=== PATIENT | female | born 1965 | race Caucasian/White ===

== ENCOUNTER → 2022-01-12 15:42 | Outpatient (BNVA) | payer OTHER, SELFPAY | PROVIDERS: Visit Provider Nurse Practitioner Family | DX: M47.896 Other spondylosis, lumbar region (principal); M54.59 Other low back pain | CPT/HCPCS: 72100 ==

== ENCOUNTER → 2022-11-09 13:04 | Outpatient (BNVA) | payer OTHER, SELFPAY | PROVIDERS: PCP Nurse Practitioner Family; Visit Provider Nurse Practitioner Family | DX: K59.00 Constipation, unspecified (principal) | CPT/HCPCS: 74018 ==

== ENCOUNTER 2022-11-29 06:23 | Day surgery (SDC) | payer OTHER, SELFPAY ==
[2022-11-27 08:45] VITALS: BMI 20.7
[2022-11-29 06:43] VITALS: BP 117/79; PULSE 64; RESP 18; TEMP 36.2; O2SAT 97
[2022-11-29] MEDS: sodium chloride 0.9% 1,000 ML 30 ML IV (06:52)
--- NOTE | 2022-11-29 06:56 | W.PM.OPSUD ---
Surgery/Procedure H&P Update DATE OF PROCEDURE: November 29, 2022 DATE H&P PERFORMED: 11/14/22 H&P UPDATE INFORMATION: I have reviewed H&P completed within last 30 days, I have examined patient prior to procedure and No changes to prior documentation PLANNED PROCEDURE: Operation Date: 11/29/22 08:00 Proposed Procedures p 27919 Colon 37101 EGD 59.09,Z80.0, K21.9(Not Applicable) - DO mckay Duran Colonoscopy(Not Applicable) - Newton Lynn DO
--- NOTE | 2022-11-29 08:08 | ANES.PREANE2 ---
Pre-Anesthetic Assessment Height/Weight: Height 1.65 m Weight 56.699 kg Temp Pulse Resp BP Pulse Ox O2 Del Method 97.1 F L 64 18 117/79 97 11/29/22 06:43 11/29/22 06:43 11/29/22 06:43 11/29/22 06:43 11/29/22 06:43 11/29/22 06:43 Preop Diagnosis: Gerd, hx malignant neoplasm Operation Date: 11/29/22 08:00 Proposed Procedures p 80612 Colon 64874 EGD 59.09,Z80.0, K21.9(Not Applicable) - DO mckay Duran Colonoscopy(Not Applicable) - Newton Lynn DO Familial anesthetic complications: None Was Beta Marya taken within 24 hours: N/A Was Clonidine taken within 24 hours: N/A Last intake: Intake Last Liquid Date 11/28/22 Last Liquid Time 22:00 Last Solid Date 11/27/22 Last Solid Time 19:00 Social No alcohol and No tobacco Exam alert, oriented x 3 and clear to auscultation bilaterally Airway Submandibular: within normal limits Cervical ROM: within normal limits Mallampati: Class II Dentition: full History/ROS No significant history except as noted Pulmonary None reported CV/HEM None reported None reported Hepatic None reported GI Gastroesophageal Reflux Disease Metabolic None reported Musc/skel None reported Neuropsych None reported Anesthetic Plan ASA status: 2 Anesthesia: Anesthesia Evaluation and MAC Risk of > 500 ml blood loss (7ml/kg in children): No Medications/Allergies Home Medications Medication Instructions Recorded Confirmed Last Taken Type cyanocobalamin (vitamin B-12) 1,000 mcg SUBCUT Q14D 11/14/22 11/27/22 11/21/22 History 1,000 mcg/mL injection solution potassium chloride 10 mEq 10 meq PO DAILY 11/14/22 11/27/22 11/27/22 History capsule,extended release topiramate 50 mg tablet 50 mg PO DAILY 11/14/22 11/27/22 11/28/22 History linaclotide 145 mcg capsule 145 mcg PO DAILY 11/27/22 11/27/22 11/28/22 History (Linzess) pantoprazole 40 mg tablet,delayed 40 mg PO DAILY 11/27/22 11/27/22 11/27/22 History release (Protonix) Allergies Allergy/AdvReac Type Severity Reaction Status Date / Time latex Allergy ALGY-Anaphy Verified 11/27/22 08:41 laxis Current Medications Generic Name Dose Route Start Last Admin Trade Name Freq PRN Reason Stop Dose Admin Sodium Chloride 1,000 mls @ 30 mls/hr 11/29/22 06:30 11/29/22 06:52 Sodium Chloride 0.9% IV 11/30/22 06:29 30 mls/hr .Q24H GAVINO Administration PFSH Anesthesia Medical History (Updated 11/14/22 @ 11:00 by Newton Lynn DO) Chronic constipation Family history of colon cancer GERD (gastroesophageal reflux disease) Surgical History Hx of section x2 Hx of cholecystectomy Hx of colonoscopy Hx of esophagogastroduodenoscopy Hx of hernia repair x3 -umbilical [facility] Family History Grandfather Cancer colon cancer Family/Other Cancer brain cancer Social History Smoking and tobacco status: never smoked Alcohol intake: current Alcohol intake frequency: holidays/special occasions only Data Anesthesia Cardiac Studies: No Data to Display
[2022-11-29 09:14] VITALS: BP 98/67; PULSE 72; RESP 16; TEMP 36.1; O2SAT 98
[2022-11-29 09:19] VITALS: BP 107/70; PULSE 66; RESP 18; O2SAT 96
[2022-11-29 09:29] VITALS: BP 130/80; PULSE 62; RESP 18; O2SAT 97
--- NOTE | 2022-11-29 16:40 | ANE.PACU2 ---
Inpatient post-anesthesia follow up: Airway intact: Yes Vital signs: Temperature 97.0 F Pulse Rate 62 Respiratory Rate 18 Blood Pressure 130/80 Pulse Oximetry 97 Oxygen Delivery Me thod Room Air Oxygen Flow Rate Fraction of Inspir ed Oxygen Hydration adequate: Yes Nausea and vomiting: No Pain level: 2 Mental status: Baseline
== END 2022-11-29 09:52 | disposition home or self-care (01) ==
PROVIDERS: PCP Nurse Practitioner Family; Visit Provider Surgery
PROC: 0DJ08ZZ Inspection of Upper Intestinal Tract, Via Natural or Artificial Opening Endoscopic (ICD-10-PCS; CPT 43235; principal; 2022-11-29 08:00)
PROC: 0DJD8ZZ Inspection of Lower Intestinal Tract, Via Natural or Artificial Opening Endoscopic (ICD-10-PCS; CPT 45378; 2022-11-29 08:00)
DX: K59.09 Other constipation (principal); Z80.0 Family history of malignant neoplasm of digestive organs; K21.9 Gastro-esophageal reflux disease without esophagitis; K64.8 Other hemorrhoids
CPT/HCPCS: 43239; 45378; 88305; J2704; J7030

== ENCOUNTER 2022-12-11 18:46 | Inpatient (IN) | payer OTHER, SELFPAY ==
[2022-12-08 10:43] VITALS: BMI 20.2
[2022-12-11] VITALS (35 sets, daily range): BP systolic 75–135; BP diastolic 35–80; PULSE 58–597; RESP 15–20; TEMP 36.3–36.8; O2SAT 94–100
--- NOTE | 2022-12-11 08:48 | W.PM.OPSUD ---
Surgery/Procedure H&P Update DATE OF PROCEDURE: December 11, 2022 DATE H&P PERFORMED: 11/14/22 H&P UPDATE INFORMATION: I have reviewed H&P completed within last 30 days, I have examined patient prior to procedure and Changes to prior documentation as noted here (Dx: Recurrent incisional hernia) PREOP DIAGNOSIS: Recurrent incisional hernia PLANNED PROCEDURE: Operation Date: 12/11/22 10:00 Proposed Procedures p lap recurrent incisional hernia repair w mesh 22179, K43.2(Not Applicable) - Newton Lynn DO
[2022-12-11] MEDS: sodium chloride 0.9% 1,000 ML 30 ML IV (08:51)
[2022-12-11 09:08] LABS: OR HCG Qualitative Urine Negative (Negative)
--- NOTE | 2022-12-11 09:10 | P.ANESASSM_ITS ---
Pre-Anesthetic Assessment Height/Weight: Height 1.65 m Weight 55.338 kg Temp Pulse Resp BP Pulse Ox O2 Del Method 97.3 F L 60 18 131/80 100 12/11/22 08:40 12/11/22 08:40 12/11/22 08:40 12/11/22 08:40 12/11/22 08:40 12/11/22 08:44 Preop Diagnosis: Recurrent incisional hernia Operation Date: 12/11/22 10:00 Proposed Procedures p lap recurrent incisional hernia repair w mesh 72813, K43.2(Not Applicable) - Newton Lynn DO Familial anesthetic complications: None Was Beta Marya taken within 24 hours: N/A Was Clonidine taken within 24 hours: N/A Last intake: Intake Last Liquid Date 12/07/22 Last Liquid Time 22:00 Last Solid Date 12/10/22 Last Solid Time 19:00 Social No alcohol and No tobacco Exam alert, oriented x 3, clear to auscultation bilaterally and regular rate & rhythm Airway Mallampati: Class I Dentition: full GI Gastroesophageal Reflux Disease Anesthetic Plan ASA status: 2 Anesthesia: General Risk of > 500 ml blood loss (7ml/kg in children): No Medications/Allergies Home Medications Medication Instructions Recorded Confirmed Last Taken Type cyanocobalamin (vitamin B-12) 1,000 mcg SUBCUT Q14D 11/14/22 12/08/22 11/21/22 History 1,000 mcg/mL injection solution potassium chloride 10 mEq 10 meq PO DAILY 11/14/22 12/08/22 12/09/22 History capsule,extended release topiramate 50 mg tablet 50 mg PO DAILY 11/14/22 12/08/22 12/10/22 History linaclotide 145 mcg capsule 145 mcg PO DAILY 11/27/22 12/08/22 12/09/22 History (Linzess) cetirizine 10 mg capsule (Zyrtec) 10 mg PO DAILY PRN Allergy Symptoms 12/11/22 12/11/22 12/09/22 History omeprazole magnesium 20 mg 20 mg PO DAILY 12/11/22 12/11/22 12/09/22 History tablet,delayed release (Prilosec OTC) Allergies Allergy/AdvReac Type Severity Reaction Status Date / Time latex Allergy ALGY-Anaphy Verified 12/08/22 10:40 laxis Current Medications Generic Name Dose Route Start Last Admin Trade Name Freq PRN Reason Stop Dose Admin Sodium Chloride 1,000 mls @ 30 mls/hr 12/11/22 08:45 12/11/22 08:51 Sodium Chloride 0.9% IV 12/12/22 08:44 30 mls/hr .Q24H GAVINO Administration PFSH Anesthesia Medical History (Updated 11/14/22 @ 11:00 by Newton Lynn DO) Chronic constipation Family history of colon cancer GERD (gastroesophageal reflux disease) Surgical History Hx of section x2 Hx of cholecystectomy Hx of colonoscopy Hx of esophagogastroduodenoscopy Hx of hernia repair x3 -umbilical [facility] Family History Grandfather Cancer colon cancer Family/Other Cancer brain cancer Social History Smoking and tobacco status: never smoked Alcohol intake: current Alcohol intake frequency: holidays/special occasions only Data Anesthesia Cardiac Studies: No Data to Display
[2022-12-11] MEDS: ceFAZolin 2,000 MG in sodium chloride 0.9% (plus) 50 ML 100 MG IV (10:02)
[2022-12-11] MEDS: lidocaine-epi 2% 20 mL INJ 8 ML INJECTION (10:45)
--- NOTE | 2022-12-11 11:02 | PM.OP ---
Operative Report Date of procedure: December 11, 2022 Pre-op diagnosis: Preop Diagnosis Recurrent incisional hernia Post-op diagnosis: same Procedure done: Laparoscopic repair of recurrent incisional hernia with mesh Implants: 11 cm round Ventralight mesh Specimens removed/disposition: Hernia sac Surgeon: Dr. Newton Lynn DO Anesthesia: General Estimated blood loss (mL): 5 Complications: None apparent Brief History: This is a very pleasant 57-year-old female who has a history of 3 hernia repairs with mesh in the past. She developed another hernia at the superior aspect of her previous repairs. Laparoscopic repair with mesh was indicated. The risks and benefits were explained and documented. Procedure: Patient was wheeled into the operative room and placed on the OR table in a supine position. Abdomen was inspected prepped and draped in usual sterile fashion. Time-out was performed and all present were in agreement. A 15 blade scalp was used to make a 5 millimeter incision left upper quadrant. A Veress needle was placed into the incision and intra-abdominal insufflation was brought to 15 millimeters of mercury. A 12 millimeter trocar was placed into the left lower quadrant. There was significant omental adhesions to the previous meshes on the anterior abdominal wall. These were taken down bluntly and with the Enseal. A small, 1 cm hernia was identified at the superior aspect of the previous mesh repair. The energy but device was then used to cut out the hernia sac. An 11 cm ventralight mesh was placed into the abdomen and brought up through the umbilicus using an the Sukh-Chandrika. The mesh was then tacked in place in a double crown fashion. The skeleton of the mesh was removed via the left lower quadrant. The hernia sac was then removed from the abdomen via the left lower quadrant. The left lower quadrant port site was closed with an 0 Vicryl suture in a Sukh-Chadnrika in a [id number] fashion. Incisions were closed with 4-0 Monocryl in a subcuticular interrupted fashion. Skin glue was applied. Patient tolerated the procedure well.
[2022-12-11] MEDS: HYDROcodone-acetaminophen 10-325 mg Tablet 1 TAB PO (11:50)
--- NOTE | 2022-12-11 13:05 | PC.NURSE ---
1300- attempted to ambulate to bathroom . pt complains of dizziness . pupils dilated bilat. pt assisted back to bed. cont. to complain of dizziness. legs up . pt cont to complain of generalized abdomen pain. abdomen soft . incisions dry/intact.
--- NOTE | 2022-12-11 13:39 | PC.NURSE ---
attempted to sit on side of bed. pt cont to c/o dizziness. pt laid back down . report to lico toth
[2022-12-11] MEDS: albumin 12.5 GM/250 ML VIAL IV (14:10)
[2022-12-11] MEDS: sodium chloride 0.9% 500 ML 999 ML IV (14:13)
--- NOTE | 2022-12-11 14:29 | PC.NURSE ---
report received from Lucero Rahman. Patient BP 78/56 after sitting up in bed. Informed Dr. Mills and she came to see patient. Order for 250 of albumin and 1000fluid bolus orderd.
--- NOTE | 2022-12-11 15:21 | XR_ITS ---
WS: [id number] EXAMINATION: XR chest 1V portable [id number] REASON FOR EXAM: post op COMPARISON: None available. ORDER DATE: 12/11/2022 3:25 PM TECHNIQUE: A single, portable frontal chest x-ray was obtained. X-RAY FINDINGS: There is minimal bibasal atelectasis with diaphragm elevation.. There is a 4 mm density in the centra l right upper lobe and 3 mm density in the same location on the left probably small granulomas there are no previous studies available for comparison. Pleural spaces are clear. No pleural effusions or p neumothorax. Cardiomediastinal silhouette is normal. No evidence for pulmonary edema. Soft tissue and osseous structures are unremarkable. No tubes or lines are present. XR/XR chest 1V portable [id number] IMPRESSION: Minimal bibasal atelectasis greater on the left. Focal small nodular opacity in each upper lobe most likely benign but no previo us studies available for comparison. Previous studies are available at another facility would be beneficial to obtain these for comparison otherwise a follow- up is indicated especially if the patient is at higher risk for pulmonary nodul es.
--- NOTE | 2022-12-11 15:25 | SUR.PHASEII ---
informed of patient status. Low bp and continured pain. Orders of Chest xray stat obtained.
--- NOTE | 2022-12-11 16:24 | PC.NURSE ---
Attempt to stand Dr. Lynn at bedside requesting patient sit on side of bed and stand beside bed, while obtaining orthostatic vitals. HR stayed 60-70s. BP decreased upon standing. Patient continues to complain of dizziness. Patient heavily symptomatic, unable to speak while standing, pale in color, pupils dilating, and patient swaying back and forth. Patient transferred back to bed, placed in reverse trendelenburg, and Dr. Lynn explained to patient and family that she will be staying overnight for observation. Dr. Munguia at bedside now, speaking with patient and family. Patient able to take sips, denies anything to eat. Denies any nausea/vomiting. Awaiting further orders.
--- NOTE | 2022-12-11 16:30 | ANE.PACU2 ---
Inpatient post-anesthesia follow up: Airway intact: Yes Vital signs: Temperature 98.3 F Pulse Rate 78 Respiratory Rate 16 Blood Pressure 94/55 Pulse Oximetry 93 Oxygen Delivery Me thod Room Air Oxygen Flow Rate 6 Fraction of Inspir ed Oxygen Hydration adequate: Yes Nausea and vomiting: No Pain level: 4 Mental status: Baseline Additional Comments: Orthostatic hypotension despite fluid bolus, admitted to floor
--- NOTE | 2022-12-11 17:42 | PM.HP ---
Providers/Chief Complaint Primary Care Provider: Radha Verdin Chief Complaint: K43.2 History of Present Illness Pleasant 57-year-old lady who underwent elective hernia repair with minimal blood loss, without preoperative issues apart from did not muscle ache/soreness in her arms/shoulders after trimming some bushes outside a day ago, could not discharge home from PACU due to severe orthostatic hypotension/symptoms, blood pressure soft laying down, currently 90/56, but states went down as low as 60/30 transiently while she was upright. She is feeling somewhat tired. She otherwise denies any changes in her medications recently. She has not taken her topiramate since Sunday. Denies any other added or removed medications. Denies any malaise, fever, chills, headache, chest pain pressure, nausea vomiting or diarrhea. Has noticed she has not urinated since this morning. She has received a bolus of fluid in PACU. She does not feel that she necessarily needs to go right now. noticed that she had somewhat slow time coming around from anesthesia. Started mildly slurred/ drugged , but this has been resolving. She otherwise denies any new focal deficit. Review of Systems Const: Denies: fever(s), chills, body aches or malaise Eyes: Denies: change in vision ENMT: Denies: throat pain, oral sores or ear or mastoid pain Card: Denies: chest pain, edema, pre-syncope or dyspnea on exertion Resp: Denies: dyspnea, productive cough, change in phlegm color or hemoptysis GI: Reports: abdominal pain; Denies: nausea, vomiting, diarrhea, constipation, hematochezia or melena : Denies: flank pain, urinary frequency or hematuria Musc: Denies: back pain, joint swelling or joint redness Skin/Breast: Denies: rash or new lesions Neuro: Denies: headache(s), numbness in extremities, weakness in extremities, dizziness, confusion or seizure-like activity Medications/Allergies Home Medications Medication Instructions Recorded Confirmed Last Taken Type cyanocobalamin (vitamin B-12) 1,000 mcg SUBCUT Q14D 11/14/22 12/08/22 11/21/22 History 1,000 mcg/mL injection solution potassium chloride 10 mEq 10 meq PO DAILY 11/14/22 12/08/22 12/09/22 History capsule,extended release topiramate 50 mg tablet 50 mg PO DAILY 11/14/22 12/08/22 12/10/22 History linaclotide 145 mcg capsule 145 mcg PO DAILY 11/27/22 12/08/22 12/09/22 History (Linzess) cetirizine 10 mg capsule (Zyrtec) 10 mg PO DAILY PRN Allergy Symptoms 12/11/22 12/11/22 12/09/22 History docusate sodium 100 mg capsule 100 mg PO BID #14 caps 12/11/22 Unknown Rx (DOK) hydrocodone 10 mg-acetaminophen 1 tab PO Q6H PRN pain #20 tabs 12/11/22 Unknown Rx 325 mg tablet omeprazole magnesium 20 mg 20 mg PO DAILY 12/11/22 12/11/22 12/09/22 History tablet,delayed release (Prilosec OTC) Allergies Allergy/AdvReac Type Severity Reaction Status Date / Time latex Allergy ALGY-Anaphy Verified 12/08/22 10:40 laxis PFSH Acute PFSH: Medical History Chronic constipation Family history of colon cancer GERD (gastroesophageal reflux disease) Surgical History Hx of section x2 Hx of cholecystectomy Hx of colonoscopy Hx of esophagogastroduodenoscopy Hx of hernia repair x3 -umbilical [facility] Family History Grandfather Cancer colon cancer Family/Other Cancer brain cancer Social History Smoking and tobacco status: never smoked Alcohol intake: current Alcohol intake frequency: holidays/special occasions only Alcohol use comment: Up to 1 drink nightly Marital status: Current occupational status: employed Current occupation: Banking Vitals/I&O/Wt Last Vital Signs Temp 97.8 F 12/11/22 15:00 Pulse 62 12/11/22 17:30 Resp 17 12/11/22 17:30 BP 98/57 12/11/22 17:30 Pulse Ox 97 12/11/22 17:30 O2 Del Method 12/11/22 17:30 O2 Flow Rate 6 12/11/22 11:25 12/11/22 12/11/22 12/11/22 06:59 14:59 22:59 Intake Total 2059 750 / 2810 Output Total Balance 2054 750 / 2805 Physical Exam Narrative: Accompanied by her . Const: COMMON NORMALS: patient oriented x3 and alert GENERAL APPEARANCE: cooperative ORIENTATION/CONSCIOUSNESS: Yes awake HENMT: COMMON NORMALS: oropharynx normal Neck/C-Spine: COMMON NORMALS: no JVD Resp: COMMON NORMALS: normal respiratory effort and clear to auscultation bilaterally AUSCULTATION: clear to auscultation bilaterally Cardio: COMMON NORMALS: no JVD, regular rhythm, S1 normal heart sound present, S2 normal heart sound present and No murmurs present (Cardio) RHYTHM: regular rhythm HEART SOUNDS: S1 normal heart sound present and S2 normal heart sound present GI: PALPATION: Yes Soft to palpation OTHER: Adhesive over trocar wounds, no bleeding or oozing. Extremity: COMMON NORMALS: no joint enlargement and no pedal edema Neuro: COMMON NORMALS: patient oriented x3 and moves all extremities SENSORIUM/ORIENTATION: Yes alert Skin: COMMON NORMALS: no rashes or lesions noted GENERAL SKIN EXAM: no rashes or lesions noted A&P Assessment and plan (1) Hypotension: Soft blood pressure laying down, severe or static hypotension/symptoms with getting upright. May be prolonged recovery from anesthesia. Otherwise denies medication changes apart from did not take topiramate since Sunday. Received a fluid challenge bolus in PACU. Bedrest currently, bedpan, monitor blood pressure. It appears to be gradually improving and she is seemingly gradually more awake following anesthesia. No focal abnormality noted. Blood pressure did come down transiently to as low as 60/30 while upright. Denies chest pain or pressure or other concerning symptoms. States has not urinated since the morning. We will request bladder scan. With severity of hypotension, currently unable to return home, at risk of endorgan injury, possibly life-threatening event. Telemetry monitoring. Will obtain EKG, CBC, CMP, TSH. Had only minimal blood loss. Additionally had some soreness of her arms recent after working outside [email or web address]. Check CK. Check Topamax level. Discussed with her to also let us know in case there is any change in her symptoms. In case lack of improvement or further worsening, consider additional work-up. Plan Status post hernia repair: Managed by surgery. Discussed with surgery. Surgery documentation reviewed. Original plan was to return home after elective procedure. Constipation GERD She and report recently had an unremarkable EGD and colonoscopy. Attestations Medical Necessity Statement*: Further hospitalization for additional assessment of hypotension, severe orthostatic symptoms. Diagnoses Hypotension I95.9
[2022-12-11] MEDS: HYDROcodone-acetaminophen 5-325 mg Tablet 1 TAB PO ×2 (17:47→21:41)
--- NOTE | 2022-12-11 18:13 | SUR.PHASEII ---
1642-received report from VINEET Holloway. Holding patient for room assignment.
[2022-12-11] MEDS: D5-NS 0.45% + KCL 20 mEq 20 MEQ/1,000 ML BAG 75 MEQ IV (19:44)
[2022-12-11] MEDS: docusate sodium 100 mg Capsule PO (19:45)
[2022-12-11] MEDS: heparin 5,000 unit/mL INJ 1 mL 5000 UNIT SUBCUT (19:45)
[2022-12-11] MEDS: ketorolac 30 mg/mL INJ IVP (19:50)
--- NOTE | 2022-12-11 20:30 | PC.NURSE ---
BP BP has been in 90's systolic since to room from OR. At present was 100/63. Was given IV Toradol for pain and explained to pt will give her some Morphine for cont c/o pain if BP continues to improve. Was given some IV Toradol
[2022-12-11 21:15] LABS: Basophils % 0.1 %; Hematocrit 26.8 % (37.0-47.0); Hemoglobin 8.7 g/dL (11.5-15.3); Lymphocytes # 0.8 10^3/uL (0.8-4.8); Lymphocytes % 7.4 %; Mean Corpuscular HGB Conc 32.5 g/dL (30.0-36.0); Mean Corpuscular Hemoglobin 29.1 pg (28.0-34.0); Mean Corpuscular Volume 89.6 fl (81-99); Mean Platelet Volume 9.4 fL (7.4-10.4); Monocytes # 0.3 10^3/uL (0.2-0.9); Monocytes % 2.7 %; Neutrophils # 9.26 10^3/uL (1.8-7.7); Neutrophils % 89.4 %; Nucleated Red Blood Cells % 0 %; Platelet Count 225 10^3/cmm (130-400); Red Blood Count 2.99 10^6/uL (4.1-5.3); Red Cell Distribution Width 15.8 % (12.1-15.1); White Blood Count 10.4 10^3/uL (4.0-10.0)
[2022-12-11 21:46] LABS: Alanine Aminotransferase 24 U/L (0-33); Albumin Level 3.3 g/dL (3.5-5.2); Alkaline Phosphatase 36 U/L (35-105); Anion Gap 11.9 (5-19); Aspartate Amino Transferase 33 U/L (0-32); Blood Urea Nitrogen 16 mg/dL (6-20); Calcium 7.7 mg/dL (8.5-10.5); Carbon Dioxide 21 mmol/L (22-29); Chloride 108 mmol/L (98-107); Creatine Phosphokinase 63 U/L (26-192); Globulin 1.2 g/dL (1.3-4.6); Glomerular Filtration Rate 126.3 mL/min (90-130); Glucose 140 mg/dL (65-115); Osmolality Calculated 287 mOsm/kg (285-295); Potassium 3.9 mmol/L (3.5-5.1); Sodium 137 mmol/L (136-145); Thyroid Stimulating Hormone 1.24 uIU/mL (0.27-4.20); Total Bilirubin 0.5 mg/dL (0.15-1.2); Total Protein 4.5 g/dL (6.6-8.7)
--- NOTE | 2022-12-11 23:39 | ECG_ITS ---
[facility] Test Date: 2022-12-11 Pat Name: Jania Montenegro Department: Room: 253 Gender: Female Advertising Account Representative: : 1965 Requested By: Stone Hernandez Order Number: [id number] Phyllis MD: David Pagan M.D. Measurements Intervals [place] Rate: 70 P: 41 RI: 139 QRS: 45 QRSD: 92 T: 35 QT: 389 QTc: 420 Interpretive Statements SINUS RHYTHM NONSPECIFIC T-WAVE ABNORMALITY No previous ECG available for comparison Electronically Signed On 12-11-2022 23:53:51 CDT by David Pagan M.D. [id number]
[2022-12-12] VITALS (9 sets, daily range): BP systolic 87–104; BP diastolic 51–69; PULSE 73–102; RESP 16–18; TEMP 36.3–37.3; O2SAT 91–97
--- NOTE | 2022-12-12 00:32 | PC.NURSE ---
PT CARE Pt care now being assumed by Vonnie MANLEY
[2022-12-12] MEDS: D5-NS 0.45% + KCL 20 mEq 20 MEQ/1,000 ML BAG 75 MEQ IV ×2 (06:02→21:38)
[2022-12-12] MEDS: HYDROcodone-acetaminophen 5-325 mg Tablet 1 TAB PO ×3 (06:04→18:46)
[2022-12-12] MEDS: ketorolac 30 mg/mL INJ IVP ×2 (06:05→13:09)
--- NOTE | 2022-12-12 08:24 | USCV_ITS ---
Jania Montenegro Age: 57 Gender: F : 1965 Exam Date: 12/12/2022 09:51 Ordering Phys: Stone Hernandez MD Technologist: Exam Location: [facility] – [place], [place] Indication: post surg weakness BP: 104 / 69 HR: 73 Rhythm: Sinus Technical Quality: Adequate MEASUREMENTS (Male / Female) Normal Values 2D ECHO LV Diastolic Diameter PLAX 4.5 cm 4.2 - 5.9 / 3.9 - 5.3 cm LV Systolic Diameter PLAX 3.7 cm IVS Diastolic Thickness 1.0 cm 0.6 - 1.0 / 0.6 - 0.9 cm IVS Systolic Thickness 1.5 cm LVPW Diastolic Thickness 1.2 cm 0.6 - 1.0 / 0.6 - 0.9 cm LVPW Systolic Thickness 1.1 cm LVOT Diameter 2.1 cm LV Ejection Fraction 2D Teich 10.8 % LV Ejection Fraction MOD 2C 78.7 % LV Ejection Fraction 2C AL 79.5 % LA Diameter 3.1 cm Aorta at Sinotubular Diameter 2.9 cm M-MODE Aortic Annulus Diameter 3.6 cm LA Ao Ratio MM 0.9 MV E Point Septal Separation 0.5 cm DOPPLER AV Peak Velocity 120.0 cm/s LVOT Peak Velocity 118.0 cm/s AV Area Cont Eq vti 3.2 cm squared AV Area Cont Eq pk 3.3 cm squared MV Area PHT 3.7 cm squared Mitral E to A Ratio 1.0 MV E' Velocity 33.0 cm/s Mitral E to MV E' Ratio 5.2 Mitral E to LV E' Lateral Ratio 6.0 Mitral E to LV E' Septal Ratio 4.7 TR Peak Velocity 189.7 cm/s TR Peak Gradient 14.4 mmHg TV Peak E Velocity 69.0 cm/s Right Atrial Pressure 3.0 mmHg Pulmonary Artery Systolic Pressu 17.4 mmHg RV Acceleration Time 0.1 s FINDINGS Left Ventricle Left ventricle is normal in size. LV systolic function is normal with EF of 60 to 65%. No regional wall motion abnormalities are seen. Diastolic function is normal Right Ventricle Normal in size and function Right Atrium Normal in size Left Atrium Normal in size Mitral Valve Structurally normal mitral valve. No significant stenosis or regurgitation is seen. Aortic Valve Structurally normal aortic valve. No significant stenosis or regurgitation. Tricuspid Valve Mild tricuspid regurgitation. Pulmonary artery systolic pressure is normal. Pulmonic Valve Not well visualized.Mild pulmonic regurgitation. Pericardium Normal Aorta Normal in size IVC Appears to be normal CONCLUSIONS LV systolic function is normal with EF of 60 to 65%. Diastolic function is normal. Mild tricuspid regurgitation Mild pulmonic regurgitation. No comparison studies are available. Alejandro Bernardo MD (Electronically Signed) Final Date: 13 December 2022 09:05 S
[2022-12-12 09:31] LABS: Anion Gap 11.7 (5-19); Blood Urea Nitrogen 12 mg/dL (6-20); Carbon Dioxide 24 mmol/L (22-29); Chloride 110 mmol/L (98-107); Glomerular Filtration Rate 102.3 mL/min (90-130); Glucose 97 mg/dL (65-115); Osmolality Calculated 294 mOsm/kg (285-295); Potassium 3.7 mmol/L (3.5-5.1); Sodium 142 mmol/L (136-145)
[2022-12-12] MEDS: docusate sodium 100 mg Capsule PO ×2 (09:38→18:47)
[2022-12-12] MEDS: pantoprazole DR 40 mg Tablet PO (09:38)
[2022-12-12] MEDS: heparin 5,000 unit/mL INJ 1 mL 5000 UNIT SUBCUT ×2 (09:39→21:39)
[2022-12-12 09:40] LABS: Cortisol Random 0.87 ug/dL (2.47-19.5)
--- NOTE | 2022-12-12 10:11 | PC.CHAP ---
Pastoral Care Encounter/Spiritual Assessment Type of Contact [] Declined corrugated fastener driver visit [] Patient/Family/Request visit [] Outpatient visit [] Follow-up visit [] Physician referral [] Code/Alert [x] Routine visit [] Staff referral [] Actively dying [] Patient sleeping [] Family support [] [] Out of room [] Palliative care [] [] Receiving care in room [] Pre-surgical visit [] Trauma [] Long length of stay [] ICU visit [] Other: Relational/Emotional Strength [x] Patient feels connected with others/family/visitors/staff [] Distress [] Loneliness/isolation [] Abandonment Spirituality of Patient [x] Person of Mandi [] Attends Tenriism of their Mandi [x] Believes in Prayer [] Reads Bible or Temple materials [] There are Spiritual issues to be addressed Lubricating Machine Tender Interventions [x] Prayer [] Active listening [] Non-anxious presence [x] Spiritual/emotional support [] Crisis/trauma care [] Spiritual counseling [] Bereavement support [] Provided bereavement packet [] Provided Bible/devotional materials [] Provided toy/stuffed animal, coloring book to patient or family member [] Provided Communion [] Anointing/[place] [] Salvation [x] Completed spiritual assessment [] Other: Impact on Illness or Injury [] Angry [] Fearful [] Anxious [] Often cries [] Exhaustion [] Unable to work [] Unable to attend nondenominational [] Unable to walk/stand [] Unable to read [] Unable to drive [] Unable to eat/drink [] Unable to sleep [] Unable to be with family [] Patient intubated [] Other: Summary Time spent with patient 10 min
[2022-12-12 10:18] LABS: Basophils % 0.2 %; Eosinophils % 0.2 %; Hematocrit 24.6 % (37.0-47.0); Hemoglobin 7.8 g/dL (11.5-15.3); Lymphocytes # 2.3 10^3/uL (0.8-4.8); Lymphocytes % 24.1 %; Mean Corpuscular HGB Conc 31.7 g/dL (30.0-36.0); Mean Corpuscular Hemoglobin 28.7 pg (28.0-34.0); Mean Corpuscular Volume 90.4 fl (81-99); Mean Platelet Volume 10.4 fL (7.4-10.4); Monocytes # 0.6 10^3/uL (0.2-0.9); Monocytes % 6.1 %; Neutrophils # 6.55 10^3/uL (1.8-7.7); Neutrophils % 69.1 %; Nucleated Red Blood Cells % 0 %; Platelet Count 234 10^3/cmm (130-400); Red Blood Count 2.72 10^6/uL (4.1-5.3); White Blood Count 9.5 10^3/uL (4.0-10.0)
[2022-12-12 11:39] LABS: Ferritin 83 ng/mL (15-150); Iron 61 ug/dL (37-145); Percent Saturation 30.8 % (20-50); Total Iron Binding Capacity 198 mcg/dl; Unsaturated Iron Binding 137 ug/dL (112-347)
[2022-12-12] MEDS: hydrocortisone 100 mg/2 mL SDV IVP ×2 (12:53→18:46)
[2022-12-12 13:48] LABS: Add Urine Microscopic? NO; Charge for UA Resulting for Rev
[2022-12-12 13:53] LABS: Bilirubin Urine Neg (Negative); Blood Urine Neg (Negative); Glucose Urine UA Norm (Normal); Ketones Urine Negative (Negative); Leukocyte Esterase Urine Negative (Negative); Nitrate Urine Negative (Negative); Protein Urine Neg (Negative); Specific Gravity, Urine 1.025 (1.005-1.030); Urine Appearance Clear (CLEAR); Urine Color Yellow (Yellow); Urobilinogen Urine Norm (Negative); pH Urine 5 (5-7)
--- NOTE | 2022-12-12 13:54 | PM.PN ---
Subjective Subjective: She is feeling about the same this morning. Tired. Mild headache. Mild sore throat which she attributes possibly to intubation. No cough, shortness of breath, chest pain. Abdomen is sore. No vomiting or diarrhea. Has not urinated much since yesterday. Vitals/I&O/Wt Last Vital Signs Temp 98.3 F 12/12/22 11:18 Pulse 78 12/12/22 11:18 Resp 16 12/12/22 11:18 BP 94/55 12/12/22 11:18 Pulse Ox 93 12/12/22 11:18 O2 Del Method 12/12/22 11:18 O2 Flow Rate 6 12/11/22 11:25 12/11/22 12/12/22 12/12/22 22:59 06:59 14:59 Intake Total 850 / 2910 1012.5 / 3922.5 120 / 120 Balance 850 / 2905 1012.5 / 3917.5 120 / 120 Weight last 48 hrs Weight 57.969 kg Physical Exam Narrative: Awake, alert, keenly responsive. Does appear somewhat tired. Const: COMMON NORMALS: patient oriented x3 and alert GENERAL APPEARANCE: cooperative ORIENTATION/CONSCIOUSNESS: Yes awake HENMT: COMMON NORMALS: oropharynx normal Neck/C-Spine: COMMON NORMALS: no JVD Resp: COMMON NORMALS: normal respiratory effort and clear to auscultation bilaterally AUSCULTATION: clear to auscultation bilaterally Cardio: COMMON NORMALS: no JVD, regular rhythm, S1 normal heart sound present, S2 normal heart sound present and No murmurs present (Cardio) RHYTHM: regular rhythm HEART SOUNDS: S1 normal heart sound present and S2 normal heart sound present GI: COMMON NORMALS: Normal to inspection, nondistended, normoactive bowel sounds present, Soft to palpation and non-tender PALPATION: Yes Soft to palpation OTHER: Adhesive over trocar wounds, no bleeding or oozing. Extremity: COMMON NORMALS: no joint enlargement and no pedal edema Neuro: COMMON NORMALS: patient oriented x3 and moves all extremities SENSORIUM/ORIENTATION: Yes alert Skin: COMMON NORMALS: no rashes or lesions noted GENERAL SKIN EXAM: no rashes or lesions noted Data 12/12/22 08:39 12/12/22 08:39 A&P Assessment and plan (1) Hypotension: Blood pressure slightly better today, but still soft, she still feels tired. Discussed with her work-up so far, TSH unremarkable. We additionally sent out topiramate level, although suspicion for toxicity would be rather low side as she has not had dose changes recently and has not been on the medication since Sunday. Discussed with her additional assessment with echocardiogram, additionally requested serum cortisol. Serum cortisol reviewed noted below 0.87. She is not on chronic steroids. Appears to have adrenal insufficiency, requesting hydrocortisone. Otherwise additionally noted urinary retention, urinated once overnight. Nothing so far this morning. Bladder scan obtained, on insertion of Christie 800 cc of urine. Catheter placed for now. UA requested. Mild headache, mildly sore throat. Minimal transaminitis 33. Check CK and normal. We will check COVID PCR panel. Continues with orthostatic precautions. No focal abnormality noted. Blood pressure did come down transiently to as low as 60/30 while upright. Denies chest pain or (2) Adrenal insufficiency: As above. (3) Anemia: Normocytic anemia, low MCV on the low side. Some of it dilutional as has been receiving IV fluids. Very minimal blood loss intraoperatively. Requesting iron panel, occult blood test. Has recently had reportedly unremarkable EGD and colonoscopy. TSH WNL. Plan Status post hernia repair: Managed by surgery. Original plan was to return home after elective procedure. Constipation GERD She and report recently had an unremarkable EGD and colonoscopy. Attestations Medical Necessity Statement*: Continue hospitalization for assessment management of hypotension, adrenal insufficiency, acute anemia. Diagnoses Hypotension I95.9 Adrenal insufficiency E27.40 Anemia D64.9
--- NOTE | 2022-12-12 17:44 | PM.PN ---
Subjective Subjective: Patient seen and examined. She continues to be weak this morning. Hospitalist identified adrenal insufficiency as the likely cause of her hypotension and weakness following laparoscopic repair of recurrent incisional hernia with mesh. Christie was placed today for urinary retention Vitals/I&O/Wt Last Vital Signs Temp 99.1 F 12/12/22 16:00 Pulse 82 12/12/22 16:00 Resp 16 12/12/22 16:00 BP 94/57 12/12/22 16:00 Pulse Ox 91 12/12/22 16:00 O2 Del Method 12/12/22 16:00 O2 Flow Rate 6 12/11/22 11:25 12/12/22 12/12/22 12/12/22 06:59 14:59 22:59 Intake Total 1012.5 / 3922.5 480 / 480 360 / 840 Output Total 1000 / 1000 Balance 1012.5 / 3917.5 480 / 480 -640 / -160 Weight last 48 hrs Weight 127 lb 12.8 oz Physical Exam Narrative: Abdomen: Soft, nondistended, appropriately tender to palpation, no guarding rebound or masses Incisions intact without erythema or exudate Urinary Catheter Management: Christie: Cath Placed During This Visit: yes Urinary Catheter Date of Insertion: 12/12/22 Urinary Catheter Time of Insertion: 11:00 Data 12/12/22 08:39 12/12/22 08:39 A&P Assessment and plan (1) Adrenal insufficiency: (2) History of incisional hernia repair: Plan We will remove Christie in the morning Steroid treatment per hospitalist-appreciate your input Hopefully discharge home tomorrow Attestations Medical Necessity Statement*: Patient requires a least 1 more night in the hospital for treatment of adrenal insufficiency Coding Level of Care Code Acute Code for Chg Fwd Diagnoses Adrenal insufficiency E27.40 History of incisional hernia repair Z98.890; Z87.19
[2022-12-13] MEDS: hydrocortisone 100 mg/2 mL SDV IVP ×3 (00:14→10:28)
[2022-12-13 02:31] LABS: Basophils % 0.1 %; Eosinophils % 0.1 %; Hematocrit 24.2 % (37.0-47.0); Hemoglobin 7.7 g/dL (11.5-15.3); Lymphocytes # 0.8 10^3/uL (0.8-4.8); Lymphocytes % 9.8 %; Mean Corpuscular HGB Conc 31.8 g/dL (30.0-36.0); Mean Corpuscular Hemoglobin 28.7 pg (28.0-34.0); Mean Corpuscular Volume 90.3 fl (81-99); Mean Platelet Volume 9.3 fL (7.4-10.4); Monocytes # 0.2 10^3/uL (0.2-0.9); Monocytes % 2.7 %; Neutrophils # 7.21 10^3/uL (1.8-7.7); Neutrophils % 86.8 %; Nucleated Red Blood Cells % 0 %; Platelet Count 218 10^3/cmm (130-400); Red Blood Count 2.68 10^6/uL (4.1-5.3); Red Cell Distribution Width 15.9 % (12.1-15.1); White Blood Count 8.3 10^3/uL (4.0-10.0)
[2022-12-13 02:55] LABS: Anion Gap 11.2 (5-19); Blood Urea Nitrogen 10 mg/dL (6-20); Calcium 7.9 mg/dL (8.5-10.5); Carbon Dioxide 23 mmol/L (22-29); Chloride 113 mmol/L (98-107); Glomerular Filtration Rate 126.3 mL/min (90-130); Glucose 158 mg/dL (65-115); Osmolality Calculated 298 mOsm/kg (285-295); Potassium 4.2 mmol/L (3.5-5.1); Sodium 143 mmol/L (136-145)
[2022-12-13 04:00] VITALS: BP 98/55; PULSE 69; RESP 16; TEMP 36.7; O2SAT 94
[2022-12-13 07:54] VITALS: BP 111/65; PULSE 70; RESP 16; TEMP 36.7; O2SAT 95
[2022-12-13] MEDS: docusate sodium 100 mg Capsule PO (10:28)
[2022-12-13] MEDS: polyethylene glycol 3350 Pkt 17 gm PO (10:28)
[2022-12-13] MEDS: HYDROcodone-acetaminophen 5-325 mg Tablet 1 TAB PO (10:28)
[2022-12-13] MEDS: ketorolac 30 mg/mL INJ IVP (10:29)
[2022-12-13] MEDS: heparin 5,000 unit/mL INJ 1 mL 5000 UNIT SUBCUT (10:29)
--- NOTE | 2022-12-13 10:54 | P.PN_ITS ---
Subjective Subjective: She is feeling better. She has been able to sit up, get up and has ambulated well with physical therapy. At the end my time getting to the room states feeling slightly not quite usual but definitely not as badly lightheaded as before. Vitals/I&O/Wt Last Vital Signs Temp 98.0 F 12/13/22 07:54 Pulse 70 12/13/22 07:54 Resp 16 12/13/22 07:54 BP 111/65 12/13/22 07:54 Pulse Ox 95 12/13/22 07:54 O2 Del Method Room Air 12/13/22 04:00 O2 Flow Rate 6 12/12/22 20:00 12/12/22 12/13/22 12/13/22 22:59 06:59 14:59 Intake Total 1600 / 2080 240 / 240 Output Total 1000 / 1000 300 / 1300 Balance 600 / 1080 -300 / 780 240 / 240 Weight last 48 hrs Weight 57.969 kg Physical Exam Narrative: Awake, alert, keenly responsive. Does appear somewhat tired. Const: COMMON NORMALS: patient oriented x3 and alert GENERAL APPEARANCE: cooperative ORIENTATION/CONSCIOUSNESS: Yes awake HENMT: COMMON NORMALS: oropharynx normal Neck/C-Spine: COMMON NORMALS: no JVD Resp: COMMON NORMALS: normal respiratory effort and clear to auscultation bilaterally AUSCULTATION: clear to auscultation bilaterally Cardio: COMMON NORMALS: no JVD, regular rhythm, S1 normal heart sound present, S2 normal heart sound present and No murmurs present (Cardio) RHYTHM: regular rhythm HEART SOUNDS: S1 normal heart sound present and S2 normal heart sound present GI: COMMON NORMALS: Normal to inspection, nondistended, normoactive bowel so unds present, Soft to palpation and non-tender PALPATION: Yes Soft to pal pation OTHER: Adhesive over trocar wounds, no bleeding or oozing. Extremity: COMMON NORMALS: no joint enlargement and no pedal edema Neuro: COMMON NORMALS: patient oriented x3 and moves all extremities SENSORIUM/ORIENTATION: Yes alert Skin: COMMON NORMALS: no rashes or lesions noted GENERAL SKIN EXAM: no rashes or lesions noted Urinary Catheter Management: Christie: Cath Placed During This Visit: yes Reason for Continuing Indwelling Catheter: Other Urinary Catheter Date of Insertion: 12/12/22 Urinary Catheter Time of Insertion: 11:00 Data 12/13/22 02:25 12/13/22 02:25 A&P Assessment and plan (1) Hypotension: Discussed with her regarding maintaining orthostatic precautions at all times. Continuing to monitor blood pressures at home including orthostatics. She is asked to follow-up with primary provider for further assessment of adrenal insufficiency. She is given hydrocortisone taper with instructions and discharge paperwork. Echocardiogram results noted, normal ejection fraction, diastolic function normal. Mild TVR, mild PVR. Christie removed. Voiding trial prior to DC. UA appreciated, on my interpretation nonsuggestive UTI As hypotension is much better, no longer orthostatic on evaluation can return home with follow-up with PCP. Discussed with surgery. (2) Adrenal insufficiency: As above. (3) Anemia: Normocytic anemia. TIBC and ferritin results appreciated, on my not suggestive of iron deficiency. Follow-up with PCP for additional evaluation. Some of it dilutional as has been receiving IV fluids. Very minimal blood loss intraoperatively. Requesting iron panel, occult blood test. Has recently had reportedly unremarkable EGD and colonoscopy. TSH WNL. Plan Status post hernia repair: Follow-up with surgery. Constipation GERD Attestations Medical Necessity Statement*: Anticipated return home. Diagnoses Hypotension I95.9 Adrenal insufficiency E27.40 Anemia D64.9
--- NOTE | 2022-12-13 14:13 | PM.DCS ---
Discharge Providers Date of Admission: 12/11/22 18:46 Date of Discharge: December 13, 2022 Attending Provider at Admission: Newtno Lynn DO Attending Provider at Discharge: Newton Lynn DO Primary Care Provider: Radha Verdin Diagnoses at Discharge Discharge Diagnosis (1) Hypotension: Status: Acute (2) Adrenal insufficiency: Status: Acute (3) Anemia: Status: Acute Reason for Visit Reason for Visit: K43.2 Hospital Course Hospital Course This is a very pleasant 57-year-old female who underwent an elective hernia repair. Postoperatively she was unable to stand without her blood pressure dropping and becoming lightheaded. She was admitted and work-up identified adrenal insufficiency. She was treated with steroids and her symptoms went away. She was discharged home in good condition Physical Exam Narrative: General : Patient is well developed , no acute distress, oriented x3 Head : Normal cephalic, a-traumatic. Ears : Pinnae and external canal are normal. Hearing is normal. Eyes : PERRLA, Sclera and injection are normal. No conjunctival discharge. Nose : Mucous membranes are without erythema. Throat : buccal mucosa is normal, gums are without significant recession or hypertrophy. Lungs : Equal chest rise bilaterally, no use of accessory muscles, trachea is midline. Cor : Rate and rhythm are normal. Abdomen : Soft, ND, appropriately tender, no g/r/m Extremities : No edema, no cyanosis or clubbing, dorsalis pedis pulses are present bilaterally, non-tender to palpation of calves. Upper extremities are normal bilaterally. Back : non-tender to palpation, no CVA tenderness. Neuro : CN II - XII intact, Upper and lower extremities have equal and full strength Urinary Catheter Management: Christie: Cath Placed During This Visit: yes, but has since been removed by the nurse Reason for Continuing Indwelling Catheter: Decision to DC Catheter Urinary Catheter Date of Insertion: 12/12/22 Urinary Catheter Time of Insertion: 10:00 Date Urinary Catheter Removed: 12/13/22 Time Urinary Catheter Discontinued: 10:00 Discharge Data Studies Completed and Pending Completed Studies During Hospitalization Category Date Time Status XR chest 1V portable [id number] Stat Exams 12/11/22 15:21 Completed Pathology: Surgical [PTH] Routine Pth 12/11/22 11:03 Completed CV. echo complete* [id number] Routine Ultrasound 12/12/22 08:24 Completed Radiology Impressions Chest X-Ray 12/11/22 15:21 IMPRESSION: Minimal bibasal atelectasis greater on the left. Focal small nodular opacity in each upper lobe most likely benign but no previous studies available for comparison. Previous studies are available at another facility would be beneficial to obtain these for comparison otherwise a follow-up is indicated especially if the patient is at higher risk for pulmonary nodules. Laboratory Results WBC 8.3 10^3/uL (4.0-10.0) 12/13/22 02:25 RBC 2.68 10^6/uL (4.1-5.3) L 12/13/22 02:25 Hgb 7.7 g/dL (11.5-15.3) L 12/13/22 02:25 Hct 24.2 % (37.0-47.0) L 12/13/22 02:25 MCV 90.3 fl (81-99) 12/13/22 02:25 MCH 28.7 pg (28.0-34.0) 12/13/22 02:25 MCHC 31.8 g/dL (30.0-36.0) 12/13/22 02:25 RDW 15.9 % (12.1-15.1) H 12/13/22 02:25 Plt Count 218 10^3/cmm (130-400) 12/13/22 02:25 MPV 9.3 fL (7.4-10.4) 12/13/22 02:25 Neut % (Auto) 86.8 % 12/13/22 02:25 Lymph % (Auto) 9.8 % 12/13/22 02:25 Mcintosh % (Auto) 2.7 % 12/13/22 02:25 Eos % (Auto) 0.1 % 12/13/22 02:25 Baso % (Auto) 0.1 % 12/13/22 02:25 Neut # (Auto) 7.21 10^3/uL (1.8-7.7) 12/13/22 02:25 Lymph # (Auto) 0.8 10^3/uL (0.8-4.8) 12/13/22 02:25 Mcintosh # (Auto) 0.2 10^3/uL (0.2-0.9) 12/13/22 02:25 Eos # (Auto) 0.0 10^3/uL (0.0-0.8) 12/13/22 02:25 Baso # (Auto) 0.0 10^3/uL (0.0-0.1) 12/13/22 02:25 Nucleated RBC % (auto) 0 % 12/13/22 02:25 Nucleated RBCs # 0.0 /100WBC 12/13/22 02:25 Sodium 143 mmol/L (136-145) 12/13/22 02:25 Potassium 4.2 mmol/L (3.5-5.1) 12/13/22 02:25 Chloride 113 mmol/L (98-107) H 12/13/22 02:25 Carbon Dioxide 23 mmol/L (22-29) 12/13/22 02:25 Anion Gap 11.2 (5-19) 12/13/22 02:25 BUN 10 mg/dL (6-20) 12/13/22 02:25 Creatinine 0.5 mg/dL (0.5-0.9) 12/13/22 02:25 GFR Calculation 126.3 mL/min (90-130) 12/13/22 02:25 Glucose 158 mg/dL (65-115) H 12/13/22 02:25 Calculated Osmolality 298 mOsm/kg (285-295) H 12/13/22 02:25 Calcium 7.9 mg/dL (8.5-10.5) L 12/13/22 02:25 Iron 61 ug/dL (37-145) 12/12/22 08:39 TIBC 198 mcg/dl 12/12/22 08:39 % Saturation 30.8 % (20-50) 12/12/22 08:39 Unsat Iron Binding 137 ug/dL (112-347) 12/12/22 08:39 Ferritin 83 ng/mL (15-150) 12/12/22 08:39 Total Bilirubin 0.5 mg/dL (0.15-1.2) 12/11/22 21:07 AST 33 U/L (0-32) H 12/11/22 21:07 ALT 24 U/L (0-33) 12/11/22 21:07 Alkaline Phosphatase 36 U/L (35-105) 12/11/22 21:07 Creatine Kinase 63 U/L (26-192) 12/11/22 21:07 Total Protein 4.5 g/dL (6.6-8.7) L 12/11/22 21:07 Albumin 3.3 g/dL (3.5-5.2) L 12/11/22 21:07 Globulin 1.2 g/dL (1.3-4.6) L 12/11/22 21:07 TSH 1.24 uIU/mL (0.27-4.20) 12/11/22 21:07 Random Cortisol 0.87 ug/dL (2.47-19.5) L 12/12/22 08:39 Urine Color Yellow (Yellow) 12/12/22 13:20 Urine Appearance Clear (CLEAR) 12/12/22 13:20 Urine pH 5 (5-7) 12/12/22 13:20 Ur Specific [place] 1.025 (1.005-1.030) 12/12/22 13:20 Urine Protein Neg (Negative) 12/12/22 13:20 Urine Glucose (UA) Norm (Normal) 12/12/22 13:20 Urine Ketones Negative (Negative) 12/12/22 13:20 Urine Blood Neg (Negative) 12/12/22 13:20 Urine Nitrate Negative (Negative) 12/12/22 13:20 Urine Bilirubin Neg (Negative) 12/12/22 13:20 Urine Urobilinogen Norm mg/dL (Negative) 12/12/22 13:20 Ur Leukocyte Esterase Negative (Negative) 12/12/22 13:20 Urine HCG, Qual Negative (Negative) 12/11/22 08:33 Topiramate 1.6 mcg/mL 12/11/22 21:07 Procedures Performed Laparoscopic repair of recurrent incisional hernia with mesh Vitals Last Vital Signs Temp 98.0 F 12/13/22 07:54 Pulse 70 12/13/22 07:54 Resp 16 12/13/22 07:54 BP 111/65 12/13/22 07:54 Pulse Ox 95 12/13/22 07:54 O2 Del Method Room Air 12/13/22 04:00 O2 Flow Rate 6 12/12/22 20:00 Discharge Plan Discharge Patient Disposition: Home Condition: Stable Prescriptions: New hydrocodone-acetaminophen 10-325 mg tablet 1 tab PO Q6H PRN (Reason: pain) Qty: 20 0RF Rx Instructions: May take half of a tab at a time DOK 100 mg capsule 100 mg PO BID Qty: 14 0RF hydrocortisone 10 mg tablet 5 mg PO TID Qty: 26 0RF Rx Instructions: Start 10mg AM, 10mg lunch, 5mg afternoon. Taper per instructions on discharge paperwork. Continued topiramate 50 mg tablet 50 mg PO DAILY potassium chloride 10 mEq capsule, extended release 10 meq PO DAILY cyanocobalamin (vitamin B-12) 1,000 mcg/mL solution 1,000 mcg SUBCUT Q14D Zyrtec 10 mg Capsule 10 mg PO DAILY PRN (Reason: Allergy Symptoms) Prilosec OTC 20 mg Tablet,Delayed Release (Dr/Ec) 20 mg PO DAILY No Action Linzess 290 mcg capsule 290 mcg PO DAILY Qty: 30 11RF Discharge Orders: Discharge Order (Routine); Ordered 12/13/22 Ordered By: Stone Hernandez Referrals: Newton Lynn DO [Physician] - 12/21/22 2:15 pm ( office will call you with follow up appointment to see him in 2 weeks. if you haven't heard from them within 72 hours call his office at above number.) Radha Verdin [Primary Care Provider] - 12/18/22 10:00 am Discharge Diet: Advance as tolerated Discharge Activity: Limit activity as instructed Patient Instructions: Hydrocodone/Acetaminophen (By mouth), Laxative, Stool Softeners (By mouth), Hydrocortisone (By mouth), Incisional Hernia (GEN), Ventral Hernia Repair (GEN), Post Anesthesia Care Activity Restrictions/Additional Instructions: No lifting, pushing or pulling over 15 pounds for 6 weeks. Do not soak incisions underwater for 2 weeks. Shower daily. Let the glue fall off on its own. Hydrocortisone 10 mg in the morning, 10 mg at lunch and 5 mg in the afternoon to start, after 3 days decrease to 5 mg in the morning, 5 mg at lunch and 2.5 mg in the afternoon for additional 3 days. Then decrease to 2.5 mg in the morning and lunch for 3 days. Then stop. Continue to monitor your blood pressure 3 times daily, in case you feel lightheaded standing up check your orthostatic blood pressures laying sitting and if not getting too dizzy standing. Maintain orthostatic precautions at all times, rise slowly from laying to sitting and sitting to standing be ready to lie down at any time in case you start getting very lightheaded. Follow-up with your primary doctor for further assessment of adrenal insufficiency. Follow-up with your primary doctor for further assessment of anemia. Discharge Attestations Time Spent in Discharge Care*: less than 30 min Quality Metrics Clinical Quality Measures [ No reported AMI, CVA or VTE this stay] Coding Level of Care Code Acute Code for Chg Fwd Diagnoses Hypotension I95.9 Adrenal insufficiency E27.40 Anemia D64.9
== END 2022-12-13 12:20 | disposition home or self-care (01) | DRG 983 ==
LOC: MEDSURG 20:02
PROVIDERS: Anesthesiology; Internal Medicine; Admitting Provider Surgery; PCP Nurse Practitioner Family; Visit Provider Surgery
PROC: 0WQF4ZZ Repair Abdominal Wall, Percutaneous Endoscopic Approach (ICD-10-PCS; principal; 2022-12-11 09:50)
DX: E27.40 Unspecified adrenocortical insufficiency (principal); K43.2 Incisional hernia without obstruction or gangrene; I95.1 Orthostatic hypotension; K59.09 Other constipation; Z80.0 Family history of malignant neoplasm of digestive organs; K21.9 Gastro-esophageal reflux disease without esophagitis; D64.9 Anemia, unspecified; R33.9 Retention of urine, unspecified
CPT/HCPCS: 36415; 51702; 71045; 80048; 80053; 80201; 81003; 81025; 82533; 82550; 82728; 83540; 83550; 84443; 84703; 85025; 88302; 93005; 93306; 96372; 97161; C1781; G0378; J0690; J1100; J1200; J1644; J1720; J1885; J2250; J2405; J2704; J2710; J3010; J3490; J7030; J7040; P9045

== ENCOUNTER → 2023-02-05 09:09 | Day surgery (SDC) | payer OTHER, SELFPAY ==
[2023-02-05] MEDS: cosyntropin 0.25 mg SDV IVP (09:26)
[2023-02-05 09:34] VITALS: BP 124/73; PULSE 71; RESP 18; TEMP 36.1; O2SAT 98
[2023-02-05 10:03] LABS: Cosyntropin Baseline 9.37 mcg/dL
[2023-02-05 10:32] LABS: Cosyntropin 30 Minute 23.37 mcg/dL
[2023-02-05 11:02] LABS: Cosyntropin 1 Hour 26.21 mcg/dL
[2023-02-10 04:46] LABS: Adrenocorticotropic Hormone 65 pg/mL (6-50)
== END ==
PROVIDERS: PCP Nurse Practitioner Family; Visit Provider Internal Medicine
DX: E27.40 Unspecified adrenocortical insufficiency (principal); D64.9 Anemia, unspecified; Z79.899 Other long term (current) drug therapy
CPT/HCPCS: 36415; 82024; 82533; 96374; J0834

== ENCOUNTER → 2023-08-25 12:24 | Outpatient (BNVA) | payer OTHER, SELFPAY | PROVIDERS: PCP Nurse Practitioner Family; Visit Provider Nurse Practitioner Family | DX: R30.0 Dysuria (principal); N39.0 Urinary tract infection, site not specified | CPT/HCPCS: 81000; 87077; 87086; 87184 ==

== ENCOUNTER → 2023-09-01 10:02 | Outpatient (BNVA) | payer OTHER, SELFPAY | PROVIDERS: PCP Nurse Practitioner Family; Visit Provider Emergency Medicine | DX: N39.0 Urinary tract infection, site not specified (principal) | CPT/HCPCS: 81000; 87086 ==

== ENCOUNTER → 2023-09-28 09:17 | Outpatient (BNVA) | payer OTHER, SELFPAY | PROVIDERS: PCP Nurse Practitioner Family; Visit Provider Emergency Medicine | DX: R39.9 Unspecified symptoms and signs involving the genitourinary system (principal); N39.0 Urinary tract infection, site not specified; N30.00 Acute cystitis without hematuria | CPT/HCPCS: 81000; 87086 ==

== ENCOUNTER → 2023-11-09 17:31 | Outpatient (BNVA) | payer OTHER, SELFPAY | PROVIDERS: PCP Nurse Practitioner Family; Visit Provider Nurse Practitioner Family | DX: N39.0 Urinary tract infection, site not specified (principal) | CPT/HCPCS: 81000; 87086 ==